=== PATIENT | male | born 1945 | race Caucasian/White ===

== ENCOUNTER 2018-03-09 18:47 | Emergency (ER) | payer MEDICARE, OTHER ==
[~2018-03-09 18:47] MED LIST: ALIS150T3 PO; ASC500 PO; ATEN-1 PO; ATOR40TA69 PO; B CO1CAP PO; CEP500 PO; CHLOR25 PO; CITA-128 PO; CITA-141 PO; CLON-393 PO; COD1CAPS39 PO; DIAZ-308 PO; DOXA2TAB57 PO; FAM20 PO; GEMF600T96 PO; HIGH B/P MED; IBU600 PO; IBU800 PO; LEVO-85 PO; LEVO500T PO; LIS10 PO; LISI-374 PO; LOR05 PO; LOR5 PO; LOR5/325 PO; MECL25TA9 PO; PHENA200 PO; SAW80CAP4 PO; VITA100C12 PO; ZOLP-350 PO; [UNRECOGNIZED DRUG - CODE]
--- NOTE | 2018-03-09 19:09 | ER Report ---
History and Physical Time Seen By MD: 18:49 HPI/ROS CHIEF COMPLAINT: shakiness all over HISTORY OF PRESENT ILLNESS: This is a 72 year old male. He started having sudden onset of shakiness in the last 20 minutes. Feels overall weakness with this. He says he has been drinking normally today, good fluid intake. Normal food intake. No chest pain or shortness of breath. He has not been ill recently. He does get chronic recurrent vertigo at times related to otoliths as well as altitude changes. He has macular degeneration, but denies vision changes at this time. No headache. He has no nausea or vomiting. Bowels have been moving well. No dysur ia, but does have frequency. No missed medications or changes in medicine. He denies alcohol use today. He does admit to eating a marijuana edible this afternoon that he had obtained to see if it would help with his vision. No fevers or chills. No sore throat, runny nose, or ear pain. No rashes. Allergies: Coded Allergies: latex (Verified Adverse Reaction, Intermediate, BLISTERS, 09/15/14) Uncoded Allergies: hayfever (Allergy, Mild, UNKNOWN, 09/07/11) STEROIDS (Adverse Reaction, Mild, KEEP AWAKE, 08/29/07) Home Meds Reported Medications Atorvastatin Calcium (ATORVASTATIN CALCIUM) 40 Mg Tablet, 1 TAB PO QDAY, TAB 03/18/15 Chlorthalidone (CHLORTHALIDONE) 25 Mg Tab, 25 MG PO QDAY, TAB 03/18/15 Zolpidem Tartrate (AMBIEN) 10 Mg Tablet, 1 TAB PO QHS TAKE ONE TABLET BY MOUTH AT BED TIME 10/07/13 Citalopram Hydrobromide (Citalopram Hbr) 20 Mg Tablet, 40 MG PO DAILY, 0 Refills 04/30/09 Lisinopril (Lisinopril) 40 Mg Tablet, 40 MG PO DAILY, 0 Refills 04/30/09 Discontinued Reported Medications Citalopram Hydrobromide (CITALOPRAM HBR) 40 Mg Tablet, 40 MG PO QDAY, #5 TAB 03/18/15 Reviewed Nurses Notes: Yes Hx Smoking: Yes Smoking Status: Former Smoker Hx Substance Use Disorder: No Hx Alcohol Use: Yes (occ) Constitutional Vital Sign - Last 24 Hours 03/09/18 03/09/18 03/09/1818 19:07 20:04 20:15 20:30 Temp 97.5 Pulse 89 89 89 89 95 Resp 18 13 B/P (MAP) 133/82 137/78 (97) 117/69 (85) 112/75 (87) 143/81 (101) 141/81 (101) Pulse Ox 92 93 03/09/18 03/09/18 20:45 21:00 B/P (MAP) 134/82 (99) 139/81 (100) Intake and Output 03/09/18 03/09/18 03/10/18 15:00 23:00 07:00 Intake Total 1000 ml Balance 1000 ml Physical Exam General Appearance: The patient is alert. No acute distress, but very anxious. He is non-toxic in appearance. Eyes: Pupils are equal, round. Reactive to light. No pallor, injection or icterus. Extraocular movements are intact. ENT: Mucous membranes are dry. Normal oral mucosa. Posterior oropharynx is normal. Normal tympanic membranes and canals. Neck: Supple and non tender. Respiratory: Lungs are clear to auscultation. Cardiovascular: Regular rate and rhythm. No murmurs, gallops or rubs. Normal capillary refill. No edema. Gastrointestinal: Abdomen is soft and non tender. Nondistended. Normal active bowel sounds. No costovertebral angle tenderness with percussion. Neurological: Alert and oriented x3. Cranial nerves with eye exam as noted, midline tongue, symmetric palate elevation, no weakness or droop in the face, normal sensation in the face, normal speech without aphasia or dysarthria. Normal strength,, sensation in the extremities. Skin: Warm and dry. No rashes. Musculoskeletal: Extremities are nontender. Full range of motion. No tenderness in palpation of the cervical, thoracic and lumbar spine. DIFFERENTIAL DIAGNOSIS: After history and physical exam, differential diagnosis was considered for a patient with diffuse shakiness, normal vitals, no focal deficits. Likely going to be due to the marijuana edible. Medical Decision Making Data Points Result Diagram: 03/09/18190303/09/18 1858 Laboratory Hematology Test 03/09/18 18:58 03/09/18 19:04 03/09/18 20:40 Sodium Level 141 mmol/L (137-145) Potassium Level 3.6 mmol/L (3.5-5.0) Chloride Level 105 mmol/L (98-107) Carbon Dioxide Level 24 mmol/L (22-30) Blood Urea Nitrogen 17 mg/dl (9-21) Creatinine 1.10 mg/dl (0.66-1.25) Glomerular Filtration Rate Calc > 60.0 Random Glucose 95 mg/dl (75-110) Calcium Level 9.3 mg/dl (8.4-10.2) Magnesium Level 2.2 mg/dl (1.7-2.2) Total Bilirubin 0.7 mg/dl (0.2-1.3) Aspartate Amino Transf (AST/SGOT) 29 U/L (0-35) Alanine Aminotransferase (ALT/SGPT) 48 U/L (0-56) Alkaline Phosphatase 77 U/L (0-126) Troponin I < 0.012 ng/ml Total Protein 7.6 g/dl (6.3-8.2) Albumin 4.3 g/dl (3.5-5.0) Serum Alcohol < 10 mg/dl Red Blood Count 5.23 M/uL (4.00-5.60) Mean Corpuscular Volume 93.8 fL (80.0-96.0) Mean Corpuscular Hemoglobin 32.5 pg (26.0-33.0) Mean Corpuscular Hemoglobin Concent 34.7 g/dL (32.0-36.0) Red Cell Distribution Width 14.7 % (11.5-14.5) Mean Platelet Volume 7.4 fL (7.2-11.1) Neutrophils (%) (Auto) 39.2 % (39.4-72.5) Lymphocytes (%) (Auto) 48.4 % (17.6-49.6) Monocytes (%) (Auto) 9.1 % (4.1-12.4) Eosinophils (%) (Auto) 2.7 % (0.4-6.7) Basophils (%) (Auto) 0.6 % (0.3-1.4) Nucleated RBC Relative Count (auto) 0.1 /100WBC Neutrophils # (Auto) 3.9 K/uL (2.0-7.4) Lymphocytes # (Auto) 4.8 K/uL (1.3-3.6) Monocytes # (Auto) 0.9 K/uL (0.3-1.0) Eosinophils # (Auto) 0.3 K/uL (0.0-0.5) Basophils # (Auto) 0.1 K/uL (0.0-0.1) Nucleated RBC Absolute Count (auto) 0.01 K/uL Urine Color Straw Urine Clarity Clear Urine pH 7.0 pH (4.8-9.5) Urine Specific [place] 1.010 Urine Protein Negative mg/dL (NEGATIVE) Urine Glucose (UA) Negative mg/dL (NEGATIVE) Urine Ketones Negative mg/dL (NEGATIVE) Urine Blood Negative (NEGATIVE) Urine Nitrite Negative (NEGATIVE) Urine Bilirubin Negative (NEGATIVE) Urine Urobilinogen Negative mg/dL (0.2-1.9) Urine Leukocyte Esterase Negative (NEGATIVE) Urine RBC None /HPF (0-2/HPF) Urine WBC 1 /HPF (0-5/HPF) Urine Squamous Epithelial Cells Few /LPF (</=FEW) Urine Bacteria Negative /HPF (NONE-FEW) Urine Mucus None /HPF (NONE-FEW) Urine Opiates Screen Negative Urine Barbiturates Screen Negative Ur Tricyclic Antidepressants Screen Negative Urine Phencyclidine Screen Negative Urine Amphetamines Screen Negative Urine Benzodiazepines Screen Negative Urine Cocaine Screen Negative Urine Cannabinoids Screen Positive Chemistry Test 03/09/18 18:58 03/09/18 19:04 03/09/18 20:40 Glomerular Filtration Rate Calc > 60.0 Calcium Level 9.3 mg/dl (8.4-10.2) Magnesium Level 2.2 mg/dl (1.7-2.2) Total Bilirubin 0.7 mg/dl (0.2-1.3) Aspartate Amino Transf (AST/SGOT) 29 U/L (0-35) Alanine Aminotransferase (ALT/SGPT) 48 U/L (0-56) Alkaline Phosphatase 77 U/L (0-126) Troponin I < 0.012 ng/ml Total Protein 7.6 g/dl (6.3-8.2) Albumin 4.3 g/dl (3.5-5.0) Serum Alcohol < 10 mg/dl White Blood Count 9.9 k/uL (4.5-11.0) Red Blood Count 5.23 M/uL (4.00-5.60) Hemoglobin 17.0 g/dL (14.0-18.0) Hematocrit 49.0 % (42.0-52.0) Mean Corpuscular Volume 93.8 fL (80.0-96.0) Mean Corpuscular Hemoglobin 32.5 pg (26.0-33.0) Mean Corpuscular Hemoglobin Concent 34.7 g/dL (32.0-36.0) Red Cell Distribution Width 14.7 % (11.5-14.5) Platelet Count 231 K/uL (150-450) Mean Platelet Volume 7.4 fL (7.2-11.1) Neutrophils (%) (Auto) 39.2 % (39.4-72.5) Lymphocytes (%) (Auto) 48.4 % (17.6-49.6) Monocytes (%) (Auto) 9.1 % (4.1-12.4) Eosinophils (%) (Auto) 2.7 % (0.4-6.7) Basophils (%) (Auto) 0.6 % (0.3-1.4) Nucleated RBC Relative Count (auto) 0.1 /100WBC Neutrophils # (Auto) 3.9 K/uL (2.0-7.4) Lymphocytes # (Auto) 4.8 K/uL (1.3-3.6) Monocytes # (Auto) 0.9 K/uL (0.3-1.0) Eosinophils # (Auto) 0.3 K/uL (0.0-0.5) Basophils # (Auto) 0.1 K/uL (0.0-0.1) Nucleated RBC Absolute Count (auto) 0.01 K/uL Urine Color Straw Urine Clarity Clear Urine pH 7.0 pH (4.8-9.5) Urine Specific [place] 1.010 Urine Protein Negative mg/dL (NEGATIVE) Urine Glucose (UA) Negative mg/dL (NEGATIVE) Urine Ketones Negative mg/dL (NEGATIVE) Urine Blood Negative (NEGATIVE) Urine Nitrite Negative (NEGATIVE) Urine Bilirubin Negative (NEGATIVE) Urine Urobilinogen Negative mg/dL (0.2-1.9) Urine Leukocyte Esterase Negative (NEGATIVE) Urine RBC None /HPF (0-2/HPF) Urine WBC 1 /HPF (0-5/HPF) Urine Squamous Epithelial Cells Few /LPF (</=FEW) Urine Bacteria Negative /HPF (NONE-FEW) Urine Mucus None /HPF (NONE-FEW) Urine Opiates Screen Negative Urine Barbiturates Screen Negative Ur Tricyclic Antidepressants Screen Negative Urine Phencyclidine Screen Negative Urine Amphetamines Screen Negative Urine Benzodiazepines Screen Negative Urine Cocaine Screen Negative Urine Cannabinoids Screen Positive Toxicology Test 03/09/18 18:58 03/09/18 20:40 Serum Alcohol < 10 mg/dl Urine Opiates Screen Negative Urine Barbiturates Screen Negative Ur Tricyclic Antidepressants Screen Negative Urine Phencyclidine Screen Negative Urine Amphetamines Screen Negative Urine Benzodiazepines Screen Negative Urine Cocaine Screen Negative Urine Cannabinoids Screen Positive Urinalysis Test 03/09/18 20:40 Urine Color Straw Urine Clarity Clear Urine pH 7.0 pH (4.8-9.5) Urine Specific [place] 1.010 Urine Protein Negative mg/dL (NEGATIVE) Urine Glucose (UA) Negative mg/dL (NEGATIVE) Urine Ketones Negative mg/dL (NEGATIVE) Urine Blood Negative (NEGATIVE) Urine Nitrite Negative (NEGATIVE) Urine Bilirubin Negative (NEGATIVE) Urine Urobilinogen Negative mg/dL (0.2-1.9) Urine Leukocyte Esterase Negative (NEGATIVE) Urine RBC None /HPF (0-2/HPF) Urine WBC 1 /HPF (0-5/HPF) Urine Squamous Epithelial Cells Few /LPF (</=FEW) Urine Bacteria Negative /HPF (NONE-FEW) Urine Mucus None /HPF (NONE-FEW) EKG/Imaging EKG Interpretation 12 lead EKG: Rhythm: Sinus rhythm with first-degree AV block, rate 87 [place]: normal QRS: normal ST segments: normal Imaging CHEST PA AND LAT COMPARISONS: None. ADDITIONAL PERTINENT HISTORY: Shakiness and vertigo FINDINGS: Cardiomediastinal silhouette: Negative. Pulmonary vasculature: Negative. Lung mendoza: Bibasilar regions of scarring. Otherwise negative Pleural spaces: Negative. Osseous structures: Spondylitic change involving the thoracic spine. Previous resection of the distal right clavicle. Surrounding soft tissues: Negative. IMPRESSION: No evidence of acute cardiopulmonary disease. Report Dictated By: Sridhar Miller MD at 03/09/2018 7:[address] scan without contrast COMPARISONS: None ADDITIONAL PERTINENT HISTORY: Vertigo and shakiness TECHNIQUE: Multiple axial images were obtained from the skull base to the vertex without IV contrast. One of the following dose optimization techniques was utilized in the performance of this exam: Automated exposure control; adjustment of the mA and/or kV according to the patient's size; or use of an iterative reconstruction technique. Specific details can be referenced in the facility's radiology CT exam operational policy. FINDINGS: Midline shift: Negative Ventricles: Moderate enlargement of the lateral and third ventricles. Otherwise negative Brain parenchyma: Patchy hypoattenuation within the periventricular and subcortical white matter, nonspecific but likely representing small vessel ischemic change on a chronic basis. Extra-axial spaces: Mild cerebral atrophy. Intracranial vasculature: Cavernous internal carotid artery calcifications. Otherwise negative Osseous structures: Negative Paranasal sinuses and mastoid air cells: Negative Surrounding soft tissues and orbits: Negative IMPRESSION: 1. Age related changes as described above. 2. No evidence of acute intracranial pathology. Report Dictated By: Sridhar Miller MD at 03/09/2018 7:43 PM ED Course/Re-evaluation Clinical Indication for ER IV: Hydration, IV Access ED Course Orthostatics are negative. Labs are unremarkable. CT head and chest x-ray as noted above. Reviewed these results with the patient. We suspect this was an adverse reaction to the marijuana edible. Decision to Disposition Date: Mar 09, 2018 Decision to Disposition Time: 21:31 Depart Departure Latest Vital Signs Vital Signs Date Time Temp Pulse Resp B/P (MAP) Pulse Ox O2 Delivery O2 Flow Rate FiO2 03/09/18 21:00 139/81 (100) 03/09/18 20:15 89 13 93 03/09/18 19:07 97.5 Impression: Primary Impression: Adverse drug effect Condition: Improved Disposition: HOME OR SELF-CARE Referrals: SHERYL RODRIGUEZ MD (PCP) Patient Instructions: Adverse Drug Reaction (ED) Additional Instructions: Rest and increase fluid intake tonight and tomorrow. Avoid using any Marijuana edibles because of side effects. Problem Qualifiers Primary Impression: Adverse drug effect Encounter type: initial encounter Qualified Codes: T50.905A - Adverse effect of unspecified drugs, medicaments and biological substances, initial encounter TAHIRA RUGGIERO MD Mar 09, 2018 19:09
[2018-03-09 19:31] LABS: PLATELET COUNT, AUTOMATED 231 K/uL (150-450)
--- NOTE | 2018-03-09 19:51 | RADIOLOGY IMAGING REPORT ---
FACILITY: [facility] PATIENT NAME: Florin Isabel : 1945 MR: [id number] V: [id number] EXAM DATE: ORDERING PHYSICIAN: TAHIRA RUGGIERO TECHNOLOGIST: Location: [facility] - [place] Patient: Florin Isabel : 1945 Visit/Account:[id number] Date of Sevice: 03/09/[address] scan without contrast COMPARISONS: None ADDITIONAL PERTINENT HISTORY: Vertigo and shakiness TECHNIQUE: Multiple axial images were obtained from the skull base to the vertex without IV contrast . One of the following dose optimization techniques was utilized in the performance of this exam: Aut omated exposure control; adjustment of the mA and/or kV according to the patient's size; or use of an iterative reconstruction technique. Specific details can be referenced in the facility's radiology CT exam operational policy. FINDINGS: Midline shift: Negative Ventricles: Moderate enlargement of the lateral and third ventricles. Otherwise negative Brain parenchyma: Patchy hypoattenuation within the periventricular and subcortical white matter, no nspecific but likely representing small vessel ischemic change on a chronic basis. Extra-axial spaces: Mild cerebral atrophy. Intracranial vasculature: Cavernous internal carotid artery calcifications. Otherwise negative Osseous structures: Negative Paranasal sinuses and mastoid air cells: Negative Surrounding soft tissues and orbits: Negative IMPRESSION: 1. Age related changes as described above. 2. No evidence of acute intracranial pathology. Report Dictated By: Sridhar Miller MD at 03/09/2018 7:43 PM Report E-Signed By: Sridhar Miller MD at 03/09/2018 7:46 PM WSN:[id number]
--- NOTE | 2018-03-09 19:52 | RADIOLOGY IMAGING REPORT ---
FACILITY: [facility] - [place] PATIENT NAME: Florin Isabel : 1945 MR: [id number] V: [id number] EXAM DATE: ORDERING PHYSICIAN: TAHIRA RUGGIERO TECHNOLOGIST: Location: [facility] - [place] Patient: Florin Isabel : 1945 Visit/Account:[id number] Date of Sevice: 03/09/2018 CHEST PA AND LAT COMPARISONS: None. ADDITIONAL PERTINENT HISTORY: Shakiness and vertigo FINDINGS: Cardiomediastinal silhouette: Negative. Pulmonary vasculature: Negative. Lung mendoza: Bibasilar regions of scarring. Otherwise negative Pleural spaces: Negative. Osseous structures: Spondylitic change involving the thoracic spine. Previous resection of the dista l right clavicle. Surrounding soft tissues: Negative. IMPRESSION: No evidence of acute cardiopulmonary disease. Report Dictated By: Sridhar Miller MD at 03/09/2018 7:46 PM Report E-Signed By: Sridhar Miller MD at 03/09/2018 7:47 PM WSN:[id number]
[2018-03-09] MEDS ORDERED: NS(*) 0.9% 1000 ML BAG 1,000 ML IV ONE (20:00)
--- NOTE | 2018-03-09 20:25 | EKG ---
FACILITY: [facility] PATIENT NAME: DENISE MORRIS : [id number] MR: [id number] V: [id number] EXAM DATE: ORDERING PHYSICIAN: TAHIRA RUGGIERO TECHNOLOGIST: ARIMDA Test Reason : Shakiness Blood Pressure : / mmHG Vent. Rate : 087 BPM Atrial Rate : 087 BPM P-R Int : 212 ms QRS Dur : 092 ms QT Int : 424 ms P-R-T Axes : 049 -09 046 degrees QTc Int : 510 ms Sinus rhythm with 1st degree AV block Borderline left axis Prolonged QT Abnormal ECG Confirmed by KAMILAH FELIX ([id number]) on 03/10/2018 6:27:26 AM Referred By: Confirmed By:KAMILAH FELIX
[2018-03-09 21:00] VITALS: BP 139/81
== END 2018-03-09 21:40 | disposition home or self-care (01) ==
LOC: ER 20:57
DX: T40.7X5A Adverse effect of cannabis (derivatives), initial encounter (principal)
CPT/HCPCS: 36415; 80305; 81001; 83735; 84443; 84484; 85025; 93005; 96360; 99284; G0480; J7030; 70450; 71046; 80320; 82040; 82247; 82310; 82374; 82435; 82565; 82947; 84075; 84132; 84155; 84295; 84450; 84460; 84520

== ENCOUNTER 2018-07-31 14:47 | Emergency (ER) | payer MEDICARE, OTHER ==
[2018-07-31] MEDS ORDERED: NS(*) 0.9% 1000 ML BAG 1,000 ML IV ONE (15:41)
[2018-07-31 15:50] LABS: PLATELET COUNT, AUTOMATED 229 K/uL (150-450)
--- NOTE | 2018-07-31 16:53 | EKG ---
FACILITY: [facility] PATIENT NAME: DENISE MORRIS : [id number] MR: [id number] V: [id number] EXAM DATE: ORDERING PHYSICIAN: JOSHUA CROCKETT TECHNOLOGIST: NYASIA Test Reason : HTN Blood Pressure : / mmHG Vent. Rate : 073 BPM Atrial Rate : 073 BPM P-R Int : 170 ms QRS Dur : 096 ms QT Int : 422 ms P-R-T Axes : 057 -25 057 degrees QTc Int : 464 ms Normal sinus rhythm Normal ECG Relatively unchanged compared to previous Confirmed by ROSS DIAS ([id number]) on 07/31/2018 6:39:43 PM Referred By: BON Confirmed By:ROSS DIAS
--- NOTE | 2018-07-31 16:59 | RADIOLOGY IMAGING REPORT ---
FACILITY: [facility] PATIENT NAME: Florin Isabel : 1945 MR: [id number] V: [id number] EXAM DATE: ORDERING PHYSICIAN: JOSHUA CROCKETT TECHNOLOGIST: Location: [facility] - [place] Patient: Florin Isabel : 1945 Visit/Account:[id number] Date of Sevice: 07/31/2018 Examination: CHEST PA LAT Comparison: 03/09/2018 and earlier. History: High blood pressure. Findings: Cardiac and hilar contour size is within normal limits and unchanged. No new or enlarging c onsolidation, nodule, or evidence of acute peribronchial inflammation. No pneumothorax, edema, or eff usion. No acute osseous abnormality. IMPRESSION: No findings of acute cardiopulmonary disease. Report Dictated By: Hardy Horner MD at 07/31/2018 4:53 PM Report E-Signed By: Hardy Horner MD at 07/31/2018 4:55 PM WSN:[id number]
[2018-07-31 18:00] VITALS: BP 146/84
--- NOTE | 2018-07-31 18:15 | ER Report ---
History and Physical Time Seen By MD: 15:00 Hx. of Stated Complaint: PATIENT STATE THAT SOUND 1200 TODAY HE STARTED FEELING CHILLS; DIZZY AND SWEATING; HIGH BP, CALLED DOCTORS OFFICE AND THEY WANTED HIM TO GO TO THE ER HPI/ROS Has a history of sinusitis, seasonal allergies, and vertigo. He was sent to the ER by his PCM for r/o NE. Pt. said he has been struggling with allergies the past few days. Today he had an episode of vertigo followed by diaphoresis. No chest pain, no SOB. No n/v/d. Had had the same symptoms with vertigo before. Now no complaints other than sinus congestions and feeling "shaky." Denies any focal neuro deficits. Allergies: Coded Allergies: latex (Verified Adverse Reaction, Intermediate, BLISTERS, 09/15/14) Uncoded Allergies: hayfever (Allergy, Mild, UNKNOWN, 09/07/11) STEROIDS (Adverse Reaction, Mild, KEEP AWAKE, 08/29/07) Home Meds Reported Medications Atorvastatin Calcium (ATORVASTATIN CALCIUM) 40 Mg Tablet, 1 TAB PO QDAY, TAB 03/18/15 Chlorthalidone (CHLORTHALIDONE) 25 Mg Tab, 25 MG PO QDAY, TAB 03/18/15 Zolpidem Tartrate (AMBIEN) 10 Mg Tablet, 1 TAB PO QHS TAKE ONE TABLET BY MOUTH AT BED TIME 10/07/13 Citalopram Hydrobromide (Citalopram Hbr) 20 Mg Tablet, 40 MG PO DAILY, 0 Refills 04/30/09 Lisinopril (Lisinopril) 40 Mg Tablet, 40 MG PO DAILY, 0 Refills 04/30/09 Hx Smoking: Yes Smoking Status: Former Smoker Hx Substance Use Disorder: No Hx Alcohol Use: Yes (occ) Constitutional Vital Sign - Last 24 Hours 07/31/18 14:53 Temp 98.2 Pulse 77 Resp 17 B/P (MAP) 187/101 Pulse Ox 97 O2 Delivery Room Air Physical Exam General Appearance: The patient is alert, has no immediate need for airway protection and no current signs of toxicity. Eyes: Pupils equal and round no injection. No nystagmus Respiratory: Chest is non tender, lungs are clear to auscultation. Cardiac: regular rate and rhythm Gastrointestinal: Abdomen is soft and non tender, no masses, bowel sounds normal. Skin: No rashes or lesions. Neuro: CN II-XII in tact. Normal strength and sensation. No drift. No ataxia Medical Decision Making Data Points Result Diagram: 07/31/18 0000 07/31/18 0000 Laboratory Hematology Test 07/31/18 00:00 07/31/18 16:17 Red Blood Count 5.09 M/uL (4.00-5.60) Mean Corpuscular Volume 94.1 fL (80.0-96.0) Mean Corpuscular Hemoglobin 32.4 pg (26.0-33.0) Mean Corpuscular Hemoglobin Concent 34.4 g/dL (32.0-36.0) Red Cell Distribution Width 14.7 % (11.5-14.5) Mean Platelet Volume 7.4 fL (7.2-11.1) Neutrophils (%) (Auto) 46.4 % (39.4-72.5) Lymphocytes (%) (Auto) 41.6 % (17.6-49.6) Monocytes (%) (Auto) 9.7 % (4.1-12.4) Eosinophils (%) (Auto) 1.8 % (0.4-6.7) Basophils (%) (Auto) 0.5 % (0.3-1.4) Nucleated RBC Relative Count (auto) 0.0 /100WBC Neutrophils # (Auto) 3.8 K/uL (2.0-7.4) Lymphocytes # (Auto) 3.4 K/uL (1.3-3.6) Monocytes # (Auto) 0.8 K/uL (0.3-1.0) Eosinophils # (Auto) 0.2 K/uL (0.0-0.5) Basophils # (Auto) 0.0 K/uL (0.0-0.1) Nucleated RBC Absolute Count (auto) 0.00 K/uL Sodium Level 140 mmol/L (137-145) Potassium Level 3.4 mmol/L (3.5-5.0) Chloride Level 106 mmol/L (98-107) Carbon Dioxide Level 26 mmol/L (22-30) Blood Urea Nitrogen 14 mg/dl (9-21) Creatinine 1.10 mg/dl (0.66-1.25) Glomerular Filtration Rate Calc > 60.0 Random Glucose 124 mg/dl (75-110) Calcium Level 9.0 mg/dl (8.4-10.2) Total Bilirubin 0.6 mg/dl (0.2-1.3) Aspartate Amino Transf (AST/SGOT) 34 U/L (0-35) Alanine Aminotransferase (ALT/SGPT) 51 U/L (0-56) Alkaline Phosphatase 70 U/L (0-126) Total Protein 7.5 g/dl (6.3-8.2) Albumin 4.3 g/dl (3.5-5.0) Influenza Virus Type A (PCR) Negative (NEGATIVE) Influenza Virus Type B (PCR) Negative (NEGATIVE) Urine Color Straw Urine Clarity Clear Urine pH 7.0 pH (4.8-9.5) Urine Specific [place] 1.010 Urine Protein Negative mg/dL (NEGATIVE) Urine Glucose (UA) Negative mg/dL (NEGATIVE) Urine Ketones Negative mg/dL (NEGATIVE) Urine Blood Negative (NEGATIVE) Urine Nitrite Negative (NEGATIVE) Urine Bilirubin Negative (NEGATIVE) Urine Urobilinogen Negative mg/dL (0.2-1.9) Urine Leukocyte Esterase Negative (NEGATIVE) Urine RBC None /HPF (0-2/HPF) Urine WBC 1 /HPF (0-5/HPF) Urine Squamous Epithelial Cells Moderate /LPF (</=FEW) Urine Bacteria Few /HPF (NONE-FEW) Urine Hyaline Casts Many /LPF (NONE-FEW) Urine Mucus None /HPF (NONE-FEW) Chemistry Test 07/31/18 00:00 07/31/18 16:17 White Blood Count 8.2 k/uL (4.5-11.0) Red Blood Count 5.09 M/uL (4.00-5.60) Hemoglobin 16.5 g/dL (14.0-18.0) Hematocrit 47.9 % (42.0-52.0) Mean Corpuscular Volume 94.1 fL (80.0-96.0) Mean Corpuscular Hemoglobin 32.4 pg (26.0-33.0) Mean Corpuscular Hemoglobin Concent 34.4 g/dL (32.0-36.0) Red Cell Distribution Width 14.7 % (11.5-14.5) Platelet Count 229 K/uL (150-450) Mean Platelet Volume 7.4 fL (7.2-11.1) Neutrophils (%) (Auto) 46.4 % (39.4-72.5) Lymphocytes (%) (Auto) 41.6 % (17.6-49.6) Monocytes (%) (Auto) 9.7 % (4.1-12.4) Eosinophils (%) (Auto) 1.8 % (0.4-6.7) Basophils (%) (Auto) 0.5 % (0.3-1.4) Nucleated RBC Relative Count (auto) 0.0 /100WBC Neutrophils # (Auto) 3.8 K/uL (2.0-7.4) Lymphocytes # (Auto) 3.4 K/uL (1.3-3.6) Monocytes # (Auto) 0.8 K/uL (0.3-1.0) Eosinophils # (Auto) 0.2 K/uL (0.0-0.5) Basophils # (Auto) 0.0 K/uL (0.0-0.1) Nucleated RBC Absolute Count (auto) 0.00 K/uL Glomerular Filtration Rate Calc > 60.0 Calcium Level 9.0 mg/dl (8.4-10.2) Total Bilirubin 0.6 mg/dl (0.2-1.3) Aspartate Amino Transf (AST/SGOT) 34 U/L (0-35) Alanine Aminotransferase (ALT/SGPT) 51 U/L (0-56) Alkaline Phosphatase 70 U/L (0-126) Total Protein 7.5 g/dl (6.3-8.2) Albumin 4.3 g/dl (3.5-5.0) Influenza Virus Type A (PCR) Negative (NEGATIVE) Influenza Virus Type B (PCR) Negative (NEGATIVE) Urine Color Straw Urine Clarity Clear Urine pH 7.0 pH (4.8-9.5) Urine Specific [place] 1.010 Urine Protein Negative mg/dL (NEGATIVE) Urine Glucose (UA) Negative mg/dL (NEGATIVE) Urine Ketones Negative mg/dL (NEGATIVE) Urine Blood Negative (NEGATIVE) Urine Nitrite Negative (NEGATIVE) Urine Bilirubin Negative (NEGATIVE) Urine Urobilinogen Negative mg/dL (0.2-1.9) Urine Leukocyte Esterase Negative (NEGATIVE) Urine RBC None /HPF (0-2/HPF) Urine WBC 1 /HPF (0-5/HPF) Urine Squamous Epithelial Cells Moderate /LPF (</=FEW) Urine Bacteria Few /HPF (NONE-FEW) Urine Hyaline Casts Many /LPF (NONE-FEW) Urine Mucus None /HPF (NONE-FEW) Urinalysis Test 07/31/18 16:17 Urine Color Straw Urine Clarity Clear Urine pH 7.0 pH (4.8-9.5) Urine Specific [place] 1.010 Urine Protein Negative mg/dL (NEGATIVE) Urine Glucose (UA) Negative mg/dL (NEGATIVE) Urine Ketones Negative mg/dL (NEGATIVE) Urine Blood Negative (NEGATIVE) Urine Nitrite Negative (NEGATIVE) Urine Bilirubin Negative (NEGATIVE) Urine Urobilinogen Negative mg/dL (0.2-1.9) Urine Leukocyte Esterase Negative (NEGATIVE) Urine RBC None /HPF (0-2/HPF) Urine WBC 1 /HPF (0-5/HPF) Urine Squamous Epithelial Cells Moderate /LPF (</=FEW) Urine Bacteria Few /HPF (NONE-FEW) Urine Hyaline Casts Many /LPF (NONE-FEW) Urine Mucus None /HPF (NONE-FEW) ED Course/Re-evaluation ED Course Presents with feeling diaphoretic and "shaky." No chest pain. no SOB. Has had worsening seasonal allergies which has triggered some vertigo. Has had previous Vertigo, diagnosed as BPPV. Today with the same symptoms which self resolved. No c/w cardiac. No need for additional imaging. Had headt CT in February. Will have him follow up with Hector Robin. Decision to Disposition Date: July 31, 2018 Decision to Disposition Time: 18:11 Depart Departure Latest Vital Signs Vital Signs Date Time Temp Pulse Resp B/P (MAP) Pulse Ox O2 Delivery O2 Flow Rate FiO2 07/31/18 14:53 98.2 77 17 187/101 97 Room Air Impression: Primary Impression: Benign paroxysmal positional vertigo Additional Impression: Sinus congestion Condition: Improved Disposition: HOME OR SELF-CARE Referrals: SHERYL RODRIGUEZ MD (PCP) HECTOR ROBIN JR, MD Departure Forms: Medications Reconciliation, Patient Portal Information, ER Transition Record Patient Instructions: Sinusitis (ED) Problem Qualifiers Primary Impression: Benign paroxysmal positional vertigo Laterality: unspecified laterality Qualified Codes: H81.10 - Benign paroxy smal vertigo, unspecified ear JOSHUA CROCKETT MD July 31, 2018 18:15
== END 2018-07-31 18:17 | disposition home or self-care (01) ==
LOC: ER 14:47
DX: H81.10 Benign paroxysmal vertigo, unspecified ear (principal); R09.81 Nasal congestion
CPT/HCPCS: 71046; 81001; 85025; 87502; 93005; 96360; 99284; J7030; 82040; 82247; 82310; 82374; 82435; 82565; 82947; 84075; 84132; 84155; 84295; 84450; 84460; 84520